=== PATIENT | female | born 1960 | race Asian ===

== ENCOUNTER 2019-12-20 06:13 | Emergency (ER) | payer BC ==
[~2019-12-20] VITALS: Ht 157.5 cm; Wt 81.6 kg
[2019-12-20 06:13] VITALS: BP 0/0; TEMP 98.1
== END 2019-12-20 06:16 | disposition expired ==
LOC: ED 06:13
DX: I46.9 Cardiac arrest, cause unspecified (principal); U07.1 COVID-19
CPT/HCPCS: 82962; 96365; 96375; 96376; 99285; 99291; J0171; J0461; J3490; J7060